=== PATIENT | female | born 1960 | race Caucasian/White ===

== ENCOUNTER 2016-07-06 17:44 | Day surgery (SDC) ==
[2016-07-06 14:39] LABS: URINE MICRO REVIEW NEEDED? NO; URINE SOURCE CLEAN CATCH
[2016-07-06 15:41] LABS: HEMATOCRIT 35.7 % (37.0-47.0); HEMOGLOBIN 11.4 g/dL (12.0-16.0); MCH 31.1 PG (27-31); MCHC 31.9 g/dL (33-37); MCV 97.5 FL (81-99); MPV 10.6 FL (7.4-10.4); RBC 3.66 XMIL (4.2-5.4)
[2016-07-06 15:51] LABS: BILIRUBIN URINE NEGATIVE (NEGATIVE); BLOOD URINE SMALL (NEGATIVE); COLOR YELLOW; GLUCOSE URINE NEGATIVE (NEGATIVE); LEUKOCYTES URINE NEGATIVE (NEGATIVE); NITRITE URINE NEGATIVE (NEGATIVE); PH URINE 5.5; PROTEIN URINE NEGATIVE (NEGATIVE); SP GRAVITY URINE 1.012; TURBIDITY URINE CLEAR (CLEAR); UROBILINOGEN URINE NORMAL (NORMAL)
[2016-07-06 15:53] LABS: UR EPITHELIAL CELLS <10 /HPF (<10); URINE BACTERIA NEGATIVE /HPF; URINE RBC <10 /HPF (<10); URINE WBC <10 /HPF (<10)
[2016-07-06 16:07] LABS: AGAP 12; ALBUMIN 3.9 g/dL (3.5-5.0); ALKALINE PHOSPHATASE 64 U/L (32-104); BUN 11 mg/dL (8-22); CALCIUM 8.9 mg/dL (8.8-10.2); CHLORIDE 99 mmol/L (98-107); COSMO 269; GOT 13 U/L (10-30); GPT 9 U/L (10-36); POTASSIUM 4.1 mmol/L (3.5-5.1); SODIUM 135 mmol/L (136-145); TCO2 24 mmol/L (25-35); TOTAL BILIRUBIN 0.62 mg/dL (0.20-1.00); TOTAL PROTEIN 6.8 g/dL (6.3-8.3)
[~2016-07-06 17:44] MED LIST: KEFZOL 1 GM/D5W 50 ML ONE; LR 1,000 ML ONE; MARCAINE 0.25% PF/EPI 1:200,000 ONE
[2016-07-06] MEDS ORDERED: FENTANYL ONE (19:07)
[2016-07-06] MEDS ORDERED: DIPRIVAN 1% ONE (19:08)
[2016-07-06] MEDS ORDERED: DEMEROL ONE (19:09)
[2016-07-06] MEDS ORDERED: PHENERGAN ONE (19:09)
[2016-07-06] MEDS ORDERED: PHENERGAN IV PRN (20:25)
[2016-07-06] MEDS ORDERED: SODIUM CHLORIDE 0.9% INJ PRN (20:25)
[2016-07-06] MEDS ORDERED: MORPHINE IV PRN (20:26)
[2016-07-06] MEDS ORDERED: TYLENOL PO PRN (20:26)
[2016-07-06] MEDS ORDERED: SINGULAIR PO PRN (20:33)
[2016-07-06] MEDS ORDERED: LR 1,000 ML IV SCH (21:00)
--- NOTE | 2016-07-06 22:37 | HISTORY AND PHYSICAL ---
CHIEF COMPLAINT: Abdominal pain. HISTORY OF PRESENT ILLNESS: A 56-year-old white female patient started having abdominal pain yesterday evening right lower quadrant, sharp pain, moderate in intensity. The patient attributed pain to Celebrex she took yesterday. The patient did have some fever and chills. The patient vomited once. Patient took Nexium. Pain was getting worse. She came for evaluation in the office. I evaluated the patient. The patient did have tenderness in the right lower quadrant. I offered her admission. Patient wanted to wait. I did blood work, CT scan of the abdomen and pelvis. Preliminary report of the CT did reveal acute appendicitis and we decided to admit the patient for further care. The patient denied any diarrhea. No blood or mucus in the stool. No dysuria or hematuria. No typical chest pain, palpitation, orthopnea, PND. No runny nose, stuffy nose, sinus drainage. The patient does have back pain off and on for which she takes Celebrex. No heat or cold intolerance. The patient does have problems with allergic rhinitis for which she takes Singulair. No history of heat or cold intolerance. Denied polyuria, polydipsia. ALLERGIES: No known drug allergy. HOME MEDICATION: Include Bystolic 2.5 mg p.o. daily, Singulair 10 mg p.o. daily, Celebrex 200 mg p.o. daily p.r.n. for pain. The patient is on estrogen. PAST MEDICAL HISTORY: Low back pain, rhinitis, hypertension, menopause, gastritis and reflux disease. PERSONAL HISTORY: , lives with the . Nonsmoker. Denied alcohol or substance abuse. 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 REVIEW OF SYSTEMS: As per HPI. FAMILY HISTORY: Noncontributory. PHYSICAL EXAMINATION: GENERAL: Middle-aged white female patient in mild distress. VITAL SIGNS: Blood pressure 189/94, the patient was anxious, pulse 84, respirations 16, temperature 99.4 degrees. SKIN: Normal turgor. No rash or petechiae. HEENT: Head atraumatic, normocephalic. [place] conjunctivae. Anicteric sclerae. Extraocular muscle movement normal. Fundus cannot be penetrated. Good oral hygiene. No tonsillopharyngeal congestion or exudate. Ears and nose benign. NECK: Supple. No JVD, thyromegaly or lymphadenopathy. CHEST: Bilateral good air entry present. No rales or rhonchi. CARDIOVASCULAR: S1 and S2 heard. No gallop or thrill. ABDOMEN: Soft, globular. Bowel sounds present. No organomegaly or mass. Tenderness right lower quadrant with some rebound. No organomegaly or mass. EXTREMITIES: No cyanosis, clubbing. No acute DVT. DIPPER FISH: Alert, awake. Able to move all 4 limbs. LABORATORY DATA: Revealed hemoglobin 11.4, hematocrit 35.7, WBC count 9.06, platelet count 208,000. Electrolytes fairly benign. CO2 was 24. Urine small blood. CT scan preliminary report, acute appendicitis. CONSIDERATION: 1. Acute appendicitis. 2. Hypertension most likely due to pain and stress. 3. Chronic low back pain. 4. Gastritis and reflux disease. PLAN: Admit the patient. Surgical consult. IV hydration. Dr. Caldera evaluated the patient. The patient is going for surgery. Risk and benefit of surgery discussed with the patient.
[2016-07-07 03:38] VITALS: BP 147/77
--- NOTE | 2016-07-07 05:57 | CONSULTATION ---
DATE OF CONSULTATION: 07/06/2016 Reina Schafer is a 56-year-old white female who is a patient of Dr. Lobato. She has a 24 hour history of abdominal pain which is localized to her right lower quadrant. She has had a history of diverticulitis in the past and felt that this was diverticula. Saw Dr. Lobato and he sent her for a CT scan of her abdomen and pelvis at [facility]. I was in CT scan and saw her films and noted that she had acute appendicitis. I reviewed them with Dr. Kenney Ramos, our radiologist, and spoke with the patient about her symptoms which were in the right lower quadrant. PAST MEDICAL HISTORY: None. PAST SURGICAL HISTORY: None. MEDICATIONS: Bystolic 2.5 mg daily, Celebrex 100 mg daily, low dose estrogen, Nexium, and Singulair. ALLERGIES: No known drug allergies. 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 She is . She lives in [place]. She does not smoke. REVIEW OF SYSTEMS: A 14-point review of systems was performed and was essentially negative, except for the history of present illness. FAMILY HISTORY: Noncontributory. PHYSICAL EXAMINATION: General: Ms. Schafer is a middle aged white female of good weight. She looks healthy. HEENT Examination: No jaundice. No oral lesions. Satisfactory dentition. Neck: No cervical or supraclavicular lymphadenopathy. Heart: Has a regular rate. Lungs: Clear to auscultation and percussion bilaterally. Abdomen: Was soft. It had no scars. No evidence of hernia. It was tender in the right lower quadrant. There was no palpable mass. She had right- sided costovertebral tenderness. Rectal/Vaginal Examinations: Not performed. Extremities: She does have palpable peripheral pulses. No peripheral edema. Neurological: She is alert and oriented x3 and appropriate. DIAGNOSTIC DATA: CT scan was reviewed with our radiologist. It appeared that she had acute appendicitis and this was suggested by her history and clinical exam. IMPRESSION: Acute appendicitis. PLAN: Laparoscopic, possible open appendectomy this evening. I have discussed the procedure in detail with her in the outpatient surgery. I discussed the need for surgery and its risks. We specifically discussed risks of bleeding, infection, injury to intra-abdominal contents, trocar placement, removal of a normal appendix, ruptured appendix requiring prolonged hospitalization, and leakage from the appendiceal stump requiring reoperation for drainage of infection. She understands the need for surgery and its risks and she wants to proceed. She had no family with her. Her was at home, who she had spoken with. I did speak with Dr. Lobato prior to surgery.
--- NOTE | 2016-07-07 06:00 | OPERATIVE NOTE ---
PROCEDURE DATE: 07/06/2016 PREOPERATIVE DIAGNOSIS: Acute appendicitis. POSTOPERATIVE DIAGNOSIS: Acute appendicitis. PRINCIPAL PROCEDURE: Laparoscopic appendectomy. SURGEON: Lexii Caldera MD. ANESTHESIA: General in addition to local anesthetic. ESTIMATED BLOOD LOSS: 30 mL. DRAINS: None. INDICATIONS: Reina Schafer is a 56-year-old white female patient of Dr. Lobato, who had a 24 hour history of right lower quadrant pain. CT scan suggests acute appendicitis, as did her history and clinical exam and appendectomy was recommended. FINDINGS: She had acute appendicitis. The appendix was anterior and against her cecum. There was no evidence of rupture or free intra-abdominal purulence. Her liver appeared to be healthy. She still had her gallbladder. Both ovaries were small, but appeared to be normal, as did her uterus. She had no evidence of diverticulitis along the sigmoid colon or cecum. It was clear that her appendix was acutely inflamed. We felt we did this operation safely and no other intra- abdominal pathology was noted. DESCRIPTION OF PROCEDURE: The patient was brought to the operating room, placed supine, received general anesthesia, was intubated. Her abdomen was prepped and draped within a sterile field. We did place a Shields catheter tube. She received Ancef prophylactically. We made a curvilinear incision below the umbilicus using a 15 blade scalpel and then I used a Veress needle through this incision into the abdomen and a pneumoperitoneum was established. The Veress needle was removed and we placed a 11 mm trocar through this incision into the abdomen. The camera was placed through this port and the abdomen was explored for injury, there was none. We placed 2 other trocars under direct vision the camera. We placed a 12 mm trocar through a small transverse incision suprapubic area midline and I placed a 5 mm trocar in the right lower quadrant of the abdomen. The camera was at the umbilical port. We used a grasper and a dissector in our lower ports and we mobilized the appendix. I used a gold load 30 mm length endo-MANUEL to come across the appendiceal stump initially and then as I mobilized the appendix off the cecum I used another load of this gold stapler to come across the appendiceal mesentery. We removed the appendix using an Endobag through our 12 mm port site. We thoroughly irrigated the area of operation and all we irrigated it was removed with suction. We were happy with the appendiceal stump and there was no evidence of ongoing bleeding. We decided against leaving a drain. All trocars removed under direct vision of the camera. The pneumoperitoneum was allowed to dissipate. I used figure-of- eight 2-0 Vicryl stitches to reapproximate the fascia in our midline trocar sites and then all skin was closed with 4-0 Monocryl subcuticular stitches. Steri-Strips were applied. Plans are to remove her Shields. She will go to the recovery room and be hospitalized overnight.
[2016-07-07] MEDS: PERIDEX MT SCH ×2 (06:16→08:26)
[2016-07-07 06:50] LABS: EOS# 0.02 X1000 (0.0-0.7); EOS% 0.3 % (0.0-10.0); HEMATOCRIT 31.8 % (37.0-47.0); HEMOGLOBIN 10.5 g/dL (12.0-16.0); LYMPH# 0.53 X1000 (1.2-3.4); MANUAL DIFF NEEDED? YES; MCH 31.3 PG (27-31); MCV 94.6 FL (81-99); MONO# 0.17 X1000 (0.11-0.59); MONO% 2.2 % (1.7-9.3); MPV 10.7 FL (7.4-10.4); NEUT% 90.5 % (42.2-75.2); PLT 186 X1000 (130-400); RBC 3.36 XMIL (4.2-5.4)
[2016-07-07] MEDS ORDERED: PRILOSEC PO SCH (07:00)
[2016-07-07 07:36] LABS: BANDS 4 % (0-1); LYMPHS 4 % (21-51)
--- NOTE | 2016-07-07 07:38 | Diag Imaging Result Document ---
PROCEDURE NAME: ABDOMEN/PELVIS W/CONTRAST - 07/06/2016 CT ABDOMEN AND PELVIS WITH IV AND ORAL CONTRAST: COMPARISON: 04/02/2014. FINDINGS: There is minimal subsegmental atelectasis versus scarring at the lung bases. The appendix is grossly dilated measuring up to 9.4 mm in diameter and there is extensive periappendiceal inflammatory stranding consistent with acute appendicitis. There is no periappendiceal abscess identified and there is no free abdominal gas to indicate perforation. There is trace fluid layering in the pelvis. It is not loculated. There is no evidence of bowel obstruction. Otherwise, there is a 1 cm nonspecific low-dense focus involving the right hepatic lobe on image 29 of series 3. It is essentially stable as compared to 2013, however. The kidneys and gallbladder are grossly unremarkable. There is uncomplicated diverticulosis coli. The remainder of the solid viscera of the abdomen and pelvis and the remainder of the GI tract is essentially unremarkable. IMPRESSION: 1. Acute appendicitis with no evidence of perforation on this study. 2. This critical result was reported to Dr. Hawk Caldera at 1700 hours. 3. Other incidental/nonacute findings detailed above. [facility]
[2016-07-07 07:45] LABS: AGAP 11; ALBUMIN 3.3 g/dL (3.5-5.0); ALKALINE PHOSPHATASE 57 U/L (32-104); BUN 7 mg/dL (8-22); CALCIUM 8.5 mg/dL (8.8-10.2); CHLORIDE 103 mmol/L (98-107); COSMO 274; GOT 10 U/L (10-30); GPT 8 U/L (10-36); POTASSIUM 3.7 mmol/L (3.5-5.1); SODIUM 137 mmol/L (136-145); TCO2 23 mmol/L (25-35); TOTAL BILIRUBIN 0.35 mg/dL (0.20-1.00); TOTAL PROTEIN 6.2 g/dL (6.3-8.3)
[2016-07-07] MEDS ORDERED: PATIENT'S OWN MED PO SCH (09:00)
[2016-07-07] MEDS ORDERED: CELEBREX PO SCH (09:00)
[2016-07-07] MEDS ORDERED: BYSTOLIC PO SCH (09:00)
[2016-07-07] MEDS ORDERED: NEOSTIGMINE ONE (09:28)
[2016-07-07] MEDS ORDERED: QUELICIN (DOSE) ONE (09:29)
[2016-07-07] MEDS ORDERED: NORCURON ONE (09:29)
[2016-07-07] MEDS ORDERED: LR 1,000 ML ONE (09:29)
[2016-07-07] MEDS ORDERED: STERILE WATER INJ. ONE (09:29)
[2016-07-07] MEDS ORDERED: ROBINUL ONE (09:29)
[2016-07-07] MEDS ORDERED: XYLOCAINE-MPF 2% ONE (09:29)
[2016-07-07] MEDS ORDERED: DECADRON ONE (09:29)
[2016-07-07] MEDS ORDERED: ZOFRAN ONE (09:29)
--- NOTE | 2016-07-07 14:59 | DISCHARGE SUMMARY ---
ADMISSION DATE: 07/06/2016 DISCHARGE DATE: 07/07/2016 ADMITTING DIAGNOSIS: Acute appendicitis. DISCHARGE DIAGNOSIS: Acute appendicitis. PRINCIPAL PROCEDURE: Laparoscopic appendectomy on 07/06/2016. DISCHARGE DIET: Clear liquids. DISCHARGE DISABILITY: Full. DISCHARGE DISPOSITION: She will return to our outpatient offices in a week for followup. 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 She is a patient of Henry Lobato MD and had a 24 hour history of right lower quadrant pain. He sent her to [facility] for a CT scan of her abdomen and pelvis because of her abdominal pain, which suggested acute appendicitis. Appendectomy was recommended. From Radiology, she went to outpatient surgery and in the early evening on the day of admission, she underwent a laparoscopic appendectomy for acute appendicitis. There was no evidence of rupture or free intra-abdominal infection or purulence. No drains were left. After surgery, she went to the recovery room and then to the [address] [place] [id number] [place]. On postop day 1, she was awake, cooperative. She had already ambulated in the halls. Her trocar sites were dressed with Steri-Strips and she was tolerating liquids. DISCHARGE INSTRUCTIONS: It was felt safe to discharge her to her home under the care of her . She did not want any new discharge medications. She will return to our outpatient offices in a week and she knows to contact us with any problems.
--- NOTE | 2016-07-08 08:53 | PROGRESS NOTE ---
DATE: 07/07/2016 SUBJECTIVE: Ms. Hanh Campos is doing better. The patient admitted with acute appendicitis. Patient underwent appendectomy yesterday. The patient tolerated the procedure well. The patient does have some abdominal soreness. No high-grade fever or chills. Denied any nausea or vomiting. Tolerating fluid well. Denied any chest pain or palpitation. OBJECTIVE: Vital Signs: Reviewed. Neck: Supple. No JVD. Lungs: Clear. Heart: Regular. Abdomen: Soft. Mild soreness in lower abdomen. No guarding or rigidity. Extremities: No cyanosis, clubbing, edema. 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 Able to move all 4 limbs. CONSIDERATIONS: 1. Acute appendicitis status post appendectomy. 2. Hypertension. Blood pressure doing better. 3. Gastritis and reflux disease. 4. Low back pain. 5. Menopause. PLAN: A.m. lab is pending. Overall patient is doing better. Appreciate Dr. Caldera's help managing this patient. Will follow a.m. labs. If clinical condition permits and okay with Dr. Caldera will plan discharging patient home today. Discharge plan discussed with the patient. Continue home medicine.
== END 2016-07-07 10:39 | disposition home or self-care (01) ==
LOC: SURHOLD 17:44 → OPS 17:44 → UNDOADMOB 17:44 → 4N 20:12 → SURHOLD 20:12 → 4N 07-07 00:53 → UNDODISOB 07-07 10:39 → OPS 07-07 10:39
PROVIDERS: ATTEND Internal Medicine
DX: K35.80 Unspecified acute appendicitis (principal); R10.11 Right upper quadrant pain; R10.12 Left upper quadrant pain; I10 Essential (primary) hypertension; K21.9 Gastro-esophageal reflux disease without esophagitis; G89.29 Other chronic pain; M54.5 Low back pain; J30.9 Allergic rhinitis, unspecified; M51.26 Other intervertebral disc displacement, lumbar region; N95.1 Menopausal and female climacteric states; Z87.19 Personal history of other diseases of the digestive system; Z79.890 Hormone replacement therapy; Z79.899 Other long term (current) drug therapy; Z79.1 Long term (current) use of non-steroidal anti-inflammatories (NSAID)
CPT/HCPCS: 36415; 74177; 80053; 81001; 85025; 85027; 88304; 94761; 94799; J0330; J0690; J1100; J2175; J2270; J2405; J2550; J3010; J7120; Q9967; J2710